=== PATIENT | male | born 1975 | race Caucasian/White ===

== ENCOUNTER 2019-05-14 09:53 | Emergency (ER) | payer BC, OTHER ==
[2019-05-14 09:59] VITALS: TEMP 98.2
[2019-05-14] MEDS ORDERED: KETOROLAC 60 MG/2 ML VIAL IM STA (10:06)
[2019-05-14] MEDS ORDERED: ORPHENADRINE 30 MG/ML 2 ML VIAL IM STA (10:06)
--- NOTE | 2019-05-14 10:08 | ED ---
Back Pain HPI - General Chief Complaint: Back Pain/Injury Stated Complaint: Fall-back pain Time Seen by Provider: 05/14/19 10:01 Source: patient, RN notes reviewed, old records reviewed Limitations: no limitations - History of Present Illness Initial Comments: Patient's 44-year-old male presents emergency department today when she went lumbar back pain and tailbone pain after he slipped in the shower 2 days ago. Patient ports he fell onto his lower back and buttocks. He reports since that time has been having shooting pains on the left leg. Denies saddle anesthesias. He denies any hematuria. Denies any changes in bowel habits. Patient states that he has had no fevers or chills or other significant symptoms. He reports that he has been taking his prescription for gabapentin as well as occasional Motrin.Patient denies any recent fever, chills, shortness of breath, chest pain, abdominal pain, nausea vomiting, numbness or tingling, dysuria or hematuria, constipation or diarrhea, headaches or visual changes, or any other current symptoms - Related Data Previous Rx's Medication Instructions Recorded Acetaminophen-Codeine 300-30mg 1 tab PO Q6H PRN 3 Days #12 tablet 05/14/19 [Tylenol w/codeine #3] Cyclobenzaprine [Flexeril] 10 mg PO TID #12 tab 05/14/19 Ibuprofen 800 mg PO TID #12 tablet 05/14/19 Allergies Allergy/AdvReac Type Severity Reaction Status Date / Time No Known Allergies Allergy Verified 05/14/19 09:58 Review of Systems ROS Statement: Those systems with pertinent positive or pertinent negative responses have been documented in the HPI. ROS Other: All systems not noted in ROS Statement are negative. Past Medical History Past Medical History: No Reported History History of Any Multi-Drug Resistant Organisms: None Reported Past Surgical History: No Surgical Hx Reported Past Psychological History: No Psychological Hx Reported Smoking Status: Current every day smoker Past Alcohol Use History: None Reported Past Drug Use History: None Reported General Exam - General Exam Comments Initial Comments: Pleasant 44 year old male, no distress. Limitations: no limitations General appearance: alert, in no apparent distress Head exam: Present: atraumatic, normocephalic, normal inspection Eye exam: Present: normal appearance, PERRL, EOMI. Absent: scleral icterus, conjunctival injection, periorbital swelling ENT exam: Present: normal exam, mucous membranes moist Neck exam: Present: normal inspection. Absent: tenderness, meningismus, lymphadenopathy Respiratory exam: Present: normal lung sounds bilaterally. Absent: respiratory distress, wheezes, rales, rhonchi, stridor Cardiovascular Exam: Present: regular rate, normal rhythm, normal heart sounds. Absent: systolic murmur, diastolic murmur, rubs, gallop, clicks GI/Abdominal exam: Present: soft, normal bowel sounds. Absent: distended, tenderness, guarding, rebound, rigid Extremities exam: Present: normal inspection, full ROM, normal capillary refill. Absent: tenderness, pedal edema, joint swelling, calf tenderness Back exam: Present: normal inspection, tenderness (Patient is tenderness over the L4-5 and sacrum. No contusion), muscle spasm (lumbar left paraspinal muscules) Psychiatric exam: Present: normal affect, normal mood Skin exam: Present: warm, dry, intact, normal color. Absent: rash Course Vital Signs 05/14/19 09:57 Temperature 98.2 F Pulse Rate 96 Respiratory 18 Rate Blood Pressure 149/68 O2 Sat by Pulse 98 Oximetry Medical Decision Making - Medical Decision Making 44-year-old male presents emergency Department after slip and fall in the shower. He reports he thought his lumbar spine back 2 days ago. He complains of pain radiates on his left leg. Yesterday At this time. 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 specifically An MRI 2013. Patient was informed these results. Discussed he needs follow-up with orthopedic nurse practitioner. Will discharge Patient with coarse muscle accident temperature medicine and pain medicine. Discussed return primary's. All questions were answered temperature discussed. - Radiology Data Radiology results: report reviewed Progression of patient's L3 superior endplate and fraction since the previous study. Degenerative changes. No acute osseous lesions noted. SI joints show no acute osseous lesion. Disposition Clinical Impression: DDD (degenerative disc disease), Abnormal x-ray of lumbar spine, Sciatica Disposition: HOME SELF-CARE Condition: Good Instructions (If sedation given, give patient instructions): Acute Low Back Pain (ED) Additional Instructions: Please use medication as discussed. Please follow up with family doctor if symptoms have not improved over the next two days. Patient advised to have close follow-up with ortho spine specialty as well. Please return to the emergency room if your symptoms increase or worsen or for any other concerns. Prescriptions: Cyclobenzaprine [Flexeril] 10 mg PO TID #12 tab Ibuprofen 800 mg PO TID #12 tablet Acetaminophen-Codeine 300-30mg [Tylenol w/codeine #3] 1 tab PO Q6H PRN 3 Days #12 tablet PRN Reason: Pain Is patient prescribed a controlled substance at d/c from ED?: Yes Referrals: Muna Ling DO [Primary Care Provider] - 1-2 days Cinda Reed DO [Doctor of Osteopathic Medicine] - 1-2 days Time of Disposition: 11:27
--- NOTE | 2019-05-14 10:44 | XR ---
EXAMINATION TYPE: XR lumbar spine 2 or 3V , 3 VIEWS DATE OF EXAM ORDERED: 05/14/2019 HISTORY: fall, L leg pain. COMPARISON: Previous study dated 06/16/2013. FINDINGS: There is a gentle left-sided scoliosis. There is a superior endplate infraction of L3 which has progressed slightly from previous. No other f ractures are seen. There is diffuse disc space loss. This hypertrophic spondylosis present most marke d at T12-L1 and L1-2. No spondylolysis or spondylolisthesis. The pedicles are intact. There is mild s pondylosis deformans at T12-L1 and L1-2. IMPRESSION: 1. PROGRESSION OF THE PATIENT'S L3 SUPERIOR ENDPLATE INFRACTION SINCE THE PREVIOUS STUDY. 2. DEGENERATIVE CHANGE. 3. NO ACUTE OSSEOUS LESION
--- NOTE | 2019-05-14 10:45 | XR ---
EXAMINATION TYPE: XR sacrum coccyx , 3 VIEWS DATE OF EXAM ORDERED: 05/14/2019 HISTORY: fall, L leg pain. COMPARISON: None. FINDINGS: The sacrum and coccyx have a normal appearance. No fracture is seen. The SI joints appear normal. IMPRESSION: NO ACUTE OSSEOUS LESION.
[2019-05-14 11:53] VITALS: BP 143/93; PULSE 97; RESP 16
== END 2019-05-14 11:52 | disposition home or self-care (01) ==
LOC: EC 09:53
DX: M51.36 Other intervertebral disc degeneration, lumbar region (principal); M54.32 Sciatica, left side; R93.7 Abnormal findings on diagnostic imaging of other parts of musculoskeletal system; F17.200 Nicotine dependence, unspecified, uncomplicated
CPT/HCPCS: 72100; 72220; 99284; 96372 ×2; J2360; J1885

== ENCOUNTER → 2019-05-24 | Outpatient (CLI) | payer OTHER ==
--- NOTE | 2019-05-24 15:24 | NM ---
EXAMINATION TYPE: NM bone/joint limited DATE OF EXAM: 05/24/2019 COMPARISON: Outside lumbar spine x-ray May 18, 2019 HISTORY: Lumbar region radiculopathy and spondylosis for order. Acute on chronic back pain recent fal l injury 2 weeks ago. TECHNIQUE: After the intravenous administration of 23.9 mCi Tc 99m MDP. Images acquired 3 hours pos t injection. Multiple views of abdomen and pelvis are submitted focusing on lumbar spine. There is no abnormal uptake within the visualized osseous structures to suggest acute fracture from r ecent fall. Mild uptake lower lumbar levels corresponds to area of increased degenerative change. No significant spondylolisthesis is seen on outside x-ray. IMPRESSION: As above.
== END | disposition home or self-care (01) ==
LOC: RADNMMAIN 11:26
PROVIDERS: ATTEND Physical Medicine & Rehabilitation
DX: M54.16 Radiculopathy, lumbar region (principal)
CPT/HCPCS: 78300; A9503

== ENCOUNTER 2020-11-01 16:05 | Emergency (ER) | payer BC, OTHER ==
[2020-11-01 16:08] VITALS: TEMP 97.5
[2020-11-01] MEDS ORDERED: ONDANSETRON 4 MG/2 ML VIAL IVP STA (16:15)
[2020-11-01] MEDS ORDERED: KETOROLAC 15 MG/ML 1 ML VIAL IVP STA (16:15)
[2020-11-01] MEDS ORDERED: SODIUM CHLORIDE 0.9% 1,000 ML IV STA (16:15)
[2020-11-01] MEDS ORDERED: HYDROmorphone 0.5 MG/0.5 ML SYRINGE IVP STA (16:15)
[2020-11-01] MEDS ORDERED: SODIUM CHLORIDE 0.9% 500 ML 500 ML IV STA (16:15)
[2020-11-01 16:52] LABS: Basophils # (A) 0.1 k/uL (0-0.2); Basophils % (A) 1 %; Eosinophils # (A) 0.3 k/uL (0-0.7); Eosinophils % (A) 3 %; HCT 46.3 % (39.0-53.0); HGB 15.6 gm/dL (13.0-17.5); Lymphocytes # (A) 2.4 k/uL (1.0-4.8); Lymphocytes % (A) 23 %; MCH 32.1 pg (25.0-35.0); MCHC 33.7 g/dL (31.0-37.0); MCV 95.3 fL (80.0-100.0); Mean Platelet Volume 6.4; Monocytes # (A) 0.5 k/uL (0-1.0); Monocytes % (A) 4 %; Neutrophils # (A) 7.2 k/uL (1.3-7.7); Neutrophils % (A) 68 %; Platelet Count 352 k/uL (150-450); RBC 4.86 m/uL (4.30-5.90); RDW 12.6 % (11.5-15.5); WBC 10.5 k/uL (3.8-10.6)
[2020-11-01 16:59] LABS: Amorphous Sediment,Urine Moderate /hpf; Appearance,Urine Cloudy (Clear); Bacteria,Urine Rare /hpf; Bilirubin,Urine Negative (Negative); Blood,Urine Negative (Negative); Color,Urine Yellow; Glucose,Urine (UA) Negative (Negative); Ketones,Urine 1+ (Negative); Leukocyte Esterase,Urine Negative (Negative); Mucus,Urine Rare /hpf; Nitrite,Urine Negative (Negative); PH, Urine 7.5 (5.0-8.0); Protein,Urine Negative (Negative); RBC,Urine 2 /hpf (0-5); Specific Gravity,Urine 1.016 (1.001-1.035); Squamous Epithelial Cell,Urine <1 /hpf (0-4); Urobilinogen,Urine <2.0 mg/dL (<2.0); WBC,Urine 4 /hpf (0-5)
[2020-11-01 17:07] LABS: ALT 19 U/L (4-49); AST 20 U/L (17-59); African American GFR (CKD) >90 (>60 ml/min/1.73 sqM); Albumin 4.4 g/dL (3.5-5.0); Alkaline Phosphatase 80 U/L (38-126); Anion Gap 6 mmol/L; Blood Urea Nitrogen 12 mg/dL (9-20); Calcium 9.9 mg/dL (8.4-10.2); Carbon Dioxide 28 mmol/L (22-30); Chloride 106 mmol/L (98-107); Glucose 94 mg/dL (74-99); Lipase 111 U/L (23-300); Non-African American GFR(CKD) >90 (>60 ml/min/1.73 sqM); Potassium 5.1 mmol/L (3.5-5.1); Sodium 140 mmol/L (137-145); Total Bilirubin 0.3 mg/dL (0.2-1.3)
--- NOTE | 2020-11-01 17:31 | CT ---
EXAMINATION TYPE: CT abdomen pelvis w con DATE OF EXAM: 11/01/2020 COMPARISON: HISTORY: Left sided pain with nausea CT DLP: 1040.5 mGycm Automated exposure control for dose reduction was used. CONTRAST: Performed with IV Contrast, patient injected with 100 mL of Isovue 300. Lung bases are clear. There is no pleural effusion. Heart size is normal. There is no pericardial eff usion. Liver spleen stomach pancreas gallbladder appear normal. The bile ducts are not dilated. There is no adrenal mass. Kidneys show satisfactory contrast opacification. There is no hydronephrosi s. Ureters are not dilated. There is no retroperitoneal adenopathy. There is no mesenteric edema. There is no ascites or free air. There is no sign of a bowel obstructio n. Appendix not definitely seen. Delayed images show fairly normal renal excretion. The lumbar vertebra have normal alignment. There is no compression fracture. The bony pelvis is intac t. Hip joints are intact. IMPRESSION: Negative CT scan abdomen and pelvis. No evidence of renal stone or obstruction. Appendix not seen. No sign of appendicitis. I do not see a cause for left-sided pain.
[2020-11-01 17:34] VITALS: RESP 18
[2020-11-01] MEDS ORDERED: ACET/COD 300 MG/30 MG STARTER PACK 6 TAB BTL PO STA (17:48)
[2020-11-01] MEDS ORDERED: LIDOCAINE 5% PATCH TOPICAL STA (17:48)
[2020-11-01] MEDS ORDERED: CYCLOBENZAPRINE 10MG STARTER 3 TAB BTL PO STA (17:48)
--- NOTE | 2020-11-01 17:48 | ED ---
Abdominal Pain HPI - General Chief Complaint: Abdominal Pain Stated Complaint: L Side Pain Time Seen by Provider: 11/01/20 16:12 Source: patient Mode of arrival: ambulatory Limitations: no limitations - History of Present Illness Initial Comments: 45-year-old male patient presents to the emergency department today for evaluation of left flank pain. Patient states the pain started 2 days ago. Describes as a deep aching pain that is intermittent. States pain does worsen with deep breathing and with turning to the right side. Denies any abdominal pa in. Denies any hematuria, dysuria, urinary frequency, urinary urgency. States bowel movements are normal. Denies nausea or vomiting. Denies any radiating pain down his legs. Denies numbness or tingling to the extremities. Denies saddle anesthesia or loss of bowel or bladder control. Denies any fever or chills. He denies any history of similar type pain. Denies previous abdominal surgeries. Has not been taking any medication for pain. - Related Data Previous Rx's Medication Instructions Recorded Cyclobenzaprine [Flexeril] 10 mg PO TID #15 tab 11/01/20 Ibuprofen [Motrin] 600 mg PO Q8HR PRN #30 tab 11/01/20 Lidocaine 5% Patch [Lidoderm] 1 patch TOPICAL DAILY #30 patch 11/01/20 Allergies Allergy/AdvReac Type Severity Reaction Status Date / Time No Known Allergies Allergy Verified 11/01/20 17:22 Review of Systems ROS Statement: Those systems with pertinent positive or pertinent negative responses have been documented in the HPI. ROS Other: All systems not noted in ROS Statement are negative. Past Medical History Past Medical History: No Reported History History of Any Multi-Drug Resistant Organisms: None Reported Past Surgical History: No Surgical Hx Reported Past Psychological History: No Psychological Hx Reported Smoking Status: Current every day smoker Past Alcohol Use History: Rare Past Drug Use History: None Reported General Exam Limitations: no limitations General appearance: alert, in no apparent distress, other (This is a well- developed, well-nourished adult male patient in no acute distress. Vital signs upon presentation are temperature 97.5F, pulse 77, respirations 20, blood pressure 144/99, pulse ox 100% on room air.) Eye exam: Present: normal appearance, PERRL, EOMI. Absent: scleral icterus, conjunctival injection, periorbital swelling ENT exam: Present: normal exam, normal oropharynx, mucous membranes moist Respiratory exam: Present: normal lung sounds bilaterally. Absent: respiratory distress, wheezes, rales, rhonchi, stridor Cardiovascular Exam: Present: regular rate, normal rhythm, normal heart sounds. Absent: systolic murmur, diastolic murmur, rubs, gallop, clicks GI/Abdominal exam: Present: soft, normal bowel sounds. Absent: distended, tenderness, guarding, rebound, rigid Back exam: Present: normal inspection, CVA tenderness (L). Absent: CVA tenderness (R) Neurological exam: Present: alert, oriented X3, CN II-XII intact Psychiatric exam: Present: normal affect, normal mood Skin exam: Present: warm, dry, intact, normal color. Absent: rash Course Vital Signs 11/01/20 11/01/20 11/01/20 16:06 17:32 18:39 Temperature 97.5 F L 97.5 F L Pulse Rate 77 64 75 Respiratory 20 18 18 Rate Blood Pressure 144/99 125/93 131/85 O2 Sat by Pulse 100 100 100 Oximetry Medical Decision Making - Medical Decision Making 45-year-old male patient presented to the emergency department today for evaluation of left flank pain. Physical examination did reveal some mild left CVA tenderness. Abdomen is soft and nontender. He is afebrile normal vital signs. Labs reviewed and are unremarkable. Urinalysis is normal. CT abdomen and pelvis is negative. Upon reevaluation is resting comfortably in bed states symptoms are improved. We will treat for musculoskeletal back pain with anti- inflammatory and muscle relaxer. He is instructed to follow-up with his primary care physician for recheck in 1-2 days. Return parameters were discussed in detail. He verbalizes understanding and agrees with this plan. Case discussed with my attending Dr. Chamorro. - Lab Data Result diagrams: 11/01/20 16:55 11/01/20 16:55 Lab Results 11/01/20 11/01/20 11/01/20 Range/Units 16:55 16:55 16:55 WBC 10.5 (3.8-10.6) k/uL RBC 4.86 (4.30-5.90) m/uL Hgb 15.6 (13.0-17.5) gm/dL Hct 46.3 (39.0-53.0) % MCV 95.3 (80.0-100.0) fL MCH 32.1 (25.0-35.0) pg MCHC 33.7 (31.0-37.0) g/dL RDW 12.6 (11.5-15.5) % Plt Count 352 (150-450) k/uL MPV 6.4 Neutrophils % 68 % Lymphocytes % 23 % Monocytes % 4 % Eosinophils % 3 % Basophils % 1 % Neutrophils # 7.2 (1.3-7.7) k/uL Lymphocytes # 2.4 (1.0-4.8) k/uL Monocytes # 0.5 (0-1.0) k/uL Eosinophils # 0.3 (0-0.7) k/uL Basophils # 0.1 (0-0.2) k/uL Sodium 140 (137-145) mmol/L Potassium 5.1 (3.5-5.1) mmol/L Chloride 106 (98-107) mmol/L Carbon Dioxide 28 (22-30) mmol/L Anion Gap 6 mmol/L BUN 12 (9-20) mg/dL Creatinine 0.91 (0.66-1.25) mg/dL Est GFR (CKD-EPI)AfAm >90 (>60 ml/min/1.73 sqM) Est GFR (CKD-EPI)NonAf >90 (>60 ml/min/1.73 sqM) Glucose 94 (74-99) mg/dL Plasma Lactic Acid Daquan (0.7-2.0) mmol/L Calcium 9.9 (8.4-10.2) mg/dL Total Bilirubin 0.3 (0.2-1.3) mg/dL AST 20 (17-59) U/L ALT 19 (4-49) U/L Alkaline Phosphatase 80 (38-126) U/L Total Protein 7.0 (6.3-8.2) g/dL Albumin 4.4 (3.5-5.0) g/dL Lipase 111 (23-300) U/L Urine Color Yellow Urine Appearance Cloudy (Clear) Urine pH 7.5 (5.0-8.0) Ur Specific [place] 1.016 (1.001-1.035) Urine Protein Negative (Negative) Urine Glucose (UA) Negative (Negative) Urine Ketones 1+ H (Negative) Urine Blood Negative (Negative) Urine Nitrite Negative (Negative) Urine Bilirubin Negative (Negative) Urine Urobilinogen <2.0 (<2.0) mg/dL Ur Leukocyte Esterase Negative (Negative) Urine RBC 2 (0-5) /hpf Urine WBC 4 (0-5) /hpf Ur Squamous Epith Cells <1 (0-4) /hpf Amorphous Sediment Moderate H (None) /hpf Urine Bacteria Rare H (None) /hpf Urine Mucus Rare H (None) /hpf 11/01/20 Range/Units 16:55 WBC (3.8-10.6) k/uL RBC (4.30-5.90) m/uL Hgb (13.0-17.5) gm/dL Hct (39.0-53.0) % MCV (80.0-100.0) fL MCH (25.0-35.0) pg MCHC (31.0-37.0) g/dL RDW (11.5-15.5) % Plt Count (150-450) k/uL MPV Neutrophils % % Lymphocytes % % Monocytes % % Eosinophils % % Basophils % % Neutrophils # (1.3-7.7) k/uL Lymphocytes # (1.0-4.8) k/uL Monocytes # (0-1.0) k/uL Eosinophils # (0-0.7) k/uL Basophils # (0-0.2) k/uL Sodium (137-145) mmol/L Potassium (3.5-5.1) mmol/L Chloride (98-107) mmol/L Carbon Dioxide (22-30) mmol/L Anion Gap mmol/L BUN (9-20) mg/dL Creatinine (0.66-1.25) mg/dL Est GFR (CKD-EPI)AfAm (>60 ml/min/1.73 sqM) Est GFR (CKD-EPI)NonAf (>60 ml/min/1.73 sqM) Glucose (74-99) mg/dL Plasma Lactic Acid Daquan 1.2 (0.7-2.0) mmol/L Calcium (8.4-10.2) mg/dL Total Bilirubin (0.2-1.3) mg/dL AST (17-59) U/L ALT (4-49) U/L Alkaline Phosphatase (38-126) U/L Total Protein (6.3-8.2) g/dL Albumin (3.5-5.0) g/dL Lipase (23-300) U/L Urine Color Urine Appearance (Clear) Urine pH (5.0-8.0) Ur Specific [place] (1.001-1.035) Urine Protein (Negative) Urine Glucose (UA) (Negative) Urine Ketones (Negative) Urine Blood (Negative) Urine Nitrite (Negative) Urine Bilirubin (Negative) Urine Urobilinogen (<2.0) mg/dL Ur Leukocyte Esterase (Negative) Urine RBC (0-5) /hpf Urine WBC (0-5) /hpf Ur Squamous Epith Cells (0-4) /hpf Amorphous Sediment (None) /hpf Urine Bacteria (None) /hpf Urine Mucus (None) /hpf - Radiology Data Radiology results: report reviewed, image reviewed CT abdomen and pelvis with contrast was obtained. Report reviewed in its entirety. Impression by Dr. Marques shows negative computed tomography scan abdomen and pelvis. No evidence of renal stone or obstruction. Appendix not seen. No sign of appendicitis. I do not see a cause for left sided pain. Disposition Clinical Impression: Left flank pain Disposition: HOME SELF-CARE Condition: Good Instructions (If sedation given, give patient instructions): Flank Pain (ED), Back Pain (ED) Additional Instructions: Take medications as directed. Follow up with her primary care physician for rec heck in 1-2 days. Return to the emergency department for any new, worsening, or concerning symptoms. Prescriptions: Cyclobenzaprine [Flexeril] 10 mg PO TID #15 tab Lidocaine 5% Patch [Lidoderm] 1 patch TOPICAL DAILY #30 patch Ibuprofen [Motrin] 600 mg PO Q8HR PRN #30 tab PRN Reason: Pain Is patient prescribed a controlled substance at d/c from ED?: No Referrals: David Coreas MD [Primary Care Provider] - 1-2 days Time of Disposition: 17:48
[2020-11-01 18:40] VITALS: BP 131/85; PULSE 75
== END 2020-11-01 18:41 | disposition home or self-care (01) ==
LOC: EC 16:05
DX: R10.9 Unspecified abdominal pain (principal); F17.200 Nicotine dependence, unspecified, uncomplicated
CPT/HCPCS: 36415; 80053; 83605; 83690; 85025; 81001; 74177; 99284; 96374; 96375; 96361; J2405; J1885; J1170; Q9967

== ENCOUNTER 2021-05-08 16:16 | Emergency (ER) | payer BC ==
[2021-05-08] MEDS ORDERED: ORPHENADRINE 30 MG/ML 2 ML VIAL IM STA (17:02)
[2021-05-08] MEDS ORDERED: KETOROLAC 15 MG/ML 1 ML VIAL IM STA (17:02)
--- NOTE | 2021-05-08 17:23 | ED ---
General Adult HPI - General Chief complaint: Neck Pain/Injury Stated complaint: Neck Pain Time Seen by Provider: 05/08/21 16:35 Source: patient, RN notes reviewed, old records reviewed Mode of arrival: ambulatory Limitations: no limitations - History of Present Illness Initial comments: This is a 46-year-old male who presents emergency Department complaining of neck pain starting 3 or 4 days ago. Patient states it's on the right side of his neck and goes down into his trapezius muscle. Patient states turning makes it worse are touching makes it worse. Patient doesn't remember doing anything specifically that hurt it. Patient denies any numbness weakness. Patient denies any headache. Patient denies any blunt trauma to the area. - Related Data Previous Rx's Medication Instructions Recorded Cyclobenzaprine [Flexeril] 10 mg PO TID #15 tab 11/01/20 Ibuprofen [Motrin] 600 mg PO Q8HR PRN #30 tab 11/01/20 Lidocaine 5% Patch [Lidoderm] 1 patch TOPICAL DAILY #30 patch 11/01/20 Cyclobenzaprine [Flexeril] 10 mg PO TID #20 tab 05/08/21 Ketorolac [Toradol] 10 mg PO Q6HR #15 tab 05/08/21 Allergies Allergy/AdvReac Type Severity Reaction Status Date / Time No Known Allergies Allergy Verified 05/08/21 16:29 Review of Systems ROS Statement: Those systems with pertinent positive or pertinent negative responses have been documented in the HPI. ROS Other: All systems not noted in ROS Statement are negative. Past Medical History Past Medical History: No Reported History History of Any Multi-Drug Resistant Organisms: None Reported Past Surgical History: No Surgical Hx Reported Additional Past Surgical History / Comment(s): oral Past Psychological History: No Psychological Hx Reported Smoking Status: Current every day smoker Past Alcohol Use History: Rare Past Drug Use History: None Reported General Exam - General Exam Comments Initial Comments: GENERAL: Patient is well-developed and well-nourished. Patient is nontoxic and well- hydrated and is in mild distress. ENT: Neck is soft and supple. No significant lymphadenopathy is noted. Oropharynx is clear. Moist mucous membranes. Neck has full range of motion without eliciting any pain. There is tenderness about the right trapezius muscle EYES: The sclera were anicteric and conjunctiva were pink and moist. Extraocular movements were intact and pupils were equal round and reactive to light. Eyelids were unremarkable. PULMONARY: Unlabored respirations. Good breath sounds bilaterally. No audible rales rhonchi or wheezing was noted. MUSCULOSKELETAL: Normal extremities with adequate strength and full range of motion. LYMPHATICS: No significant lymphadenopathy is noted PSYCHIATRIC: Normal psychiatric evaluation. Limitations: no limitations Course Vital Signs 05/08/21 16:31 Temperature 98.4 F Pulse Rate 82 Respiratory 18 Rate Blood Pressure 133/87 O2 Sat by Pulse 99 Oximetry Disposition Clinical Impression: Strain of neck muscle Disposition: HOME SELF-CARE Instructions (If sedation given, give patient instructions): Cervical Sprain (ED) Prescriptions: Cyclobenzaprine [Flexeril] 10 mg PO TID #20 tab Ketorolac [Toradol] 10 mg PO Q6HR #15 tab Is patient prescribed a controlled substance at d/c from ED?: No Referrals: David Coreas MD [Primary Care Provider] - 1-2 days Time of Disposition: 17:23
[2021-05-08 17:59] VITALS: BP 129/84; PULSE 78; RESP 16; TEMP 98.1
== END 2021-05-08 17:58 | disposition home or self-care (01) ==
LOC: EC 16:16
DX: S16.1XXA Strain of muscle, fascia and tendon at neck level, initial encounter (principal); F17.200 Nicotine dependence, unspecified, uncomplicated; X58.XXXA Exposure to other specified factors, initial encounter
CPT/HCPCS: 99283; 96372 ×2; J2360; J1885

== ENCOUNTER 2021-08-07 08:48 | Emergency (ER) | payer BC ==
[2021-08-07 09:04] VITALS: RESP 16
[2021-08-07] MEDS ORDERED: SODIUM CHLORIDE 0.9% 1,000 ML IV ONE (09:05)
[2021-08-07] MEDS ORDERED: ACETAMINOPHEN TAB 500 MG TAB PO STA (09:05)
--- NOTE | 2021-08-07 09:20 | ED ---
General Adult HPI - General Chief complaint: Upper Respiratory Infection Stated complaint: fever, cough, congestion Time Seen by Provider: 08/07/21 08:54 Source: patient, RN notes reviewed, old records reviewed Mode of arrival: ambulatory Limitations: no limitations - History of Present Illness Initial comments: 46-year-old male with approximately 6 days of cough congestion, fatigue. He's had subjective fever and chills. He is not vaccinated against coronavirus. Uncertain if he came in contact with coronavirus. He's had poor appetite. No nausea or vomiting. No significant dyspnea. - Related Data Previous Rx's Medication Instructions Recorded Cyclobenzaprine [Flexeril] 10 mg PO TID #15 tab 11/01/20 Ibuprofen [Motrin] 600 mg PO Q8HR PRN #30 tab 11/01/20 Lidocaine 5% Patch [Lidoderm] 1 patch TOPICAL DAILY #30 patch 11/01/20 Cyclobenzaprine [Flexeril] 10 mg PO TID #20 tab 05/08/21 Ketorolac [Toradol] 10 mg PO Q6HR #15 tab 05/08/21 Allergies Allergy/AdvReac Type Severity Reaction Status Date / Time No Known Allergies Allergy Verified 08/07/21 08:56 Review of Systems ROS Statement: Those systems with pertinent positive or pertinent negative responses have been documented in the HPI. ROS Other: All systems not noted in ROS Statement are negative. Past Medical History Past Medical History: No Reported History History of Any Multi-Drug Resistant Organisms: None Reported Past Surgical History: No Surgical Hx Reported Additional Past Surgical History / Comment(s): oral Past Psychological History: No Psychological Hx Reported Smoking Status: Current every day smoker Past Alcohol Use History: Rare Past Drug Use History: None Reported General Exam Limitations: no limitations General appearance: alert, in no apparent distress Head exam: Present: atraumatic, normocephalic Eye exam: Present: normal appearance, PERRL ENT exam: Present: mucous membranes dry Respiratory exam: Present: normal lung sounds bilaterally. Absent: respiratory distress, wheezes Cardiovascular Exam: Present: normal rhythm, tachycardia GI/Abdominal exam: Present: soft. Absent: distended, tenderness, guarding Extremities exam: Present: normal inspection, normal capillary refill Neurological exam: Present: alert, oriented X3, CN II-XII intact. Absent: motor sensory deficit Psychiatric exam: Present: normal affect, normal mood Skin exam: Present: warm, dry, intact. Absent: cyanosis, diaphoretic Course Vital Signs 08/07/21 08/07/21 08:53 09:00 Temperature 98.2 F Pulse Rate 127 H Respiratory 18 16 Rate Blood Pressure 141/112 O2 Sat by Pulse 98 Oximetry EKG Findings - EKG Comments: EKG Findings:: EKG: Sinus tachycardia, ventricular rate of 1:15, VT interval 160, QRS duration 88, QTC 456, no ST segment elevation. Medical Decision Making - Medical Decision Making 46-year-old male presenting with concern for coronavirus, not vaccinated, patient does test positive. He is in approximately day 6. He has no hypoxia, no respiratory distress. I did obtain laboratory testing which was unremarkable. Patient does agree to medical antibodies while in the emergency department. He will be transfused. He is given strict return parameters. - Lab Data Result diagrams: 08/07/21 09:12 08/07/21 09:12 Lab Results 08/07/21 08/07/21 08/07/21 Range/Units 08:58 09:12 09:12 WBC 10.3 (3.8-10.6) k/uL RBC 4.90 (4.30-5.90) m/uL Hgb 16.0 (13.0-17.5) gm/dL Hct 46.7 (39.0-53.0) % MCV 95.4 (80.0-100.0) fL MCH 32.6 (25.0-35.0) pg MCHC 34.2 (31.0-37.0) g/dL RDW 12.7 (11.5-15.5) % Plt Count 382 (150-450) k/uL MPV 6.8 Neutrophils % 61 % Lymphocytes % 29 % Monocytes % 5 % Eosinophils % 1 % Basophils % 1 % Neutrophils # 6.3 (1.3-7.7) k/uL Lymphocytes # 3.0 (1.0-4.8) k/uL Monocytes # 0.6 (0-1.0) k/uL Eosinophils # 0.1 (0-0.7) k/uL Basophils # 0.1 (0-0.2) k/uL Sodium 138 (137-145) mmol/L Potassium 3.7 (3.5-5.1) mmol/L Chloride 105 (98-107) mmol/L Carbon Dioxide 24 (22-30) mmol/L Anion Gap 9 mmol/L BUN 21 H (9-20) mg/dL Creatinine 1.06 (0.66-1.25) mg/dL Est GFR (CKD-EPI)AfAm >90 (>60 ml/min/1.73 sqM) Est GFR (CKD-EPI)NonAf 85 (>60 ml/min/1.73 sqM) Glucose 119 H (74-99) mg/dL Calcium 10.0 (8.4-10.2) mg/dL Total Bilirubin 0.6 (0.2-1.3) mg/dL AST 18 (17-59) U/L ALT 19 (4-49) U/L Alkaline Phosphatase 88 (38-126) U/L Total Protein 7.4 (6.3-8.2) g/dL Albumin 4.4 (3.5-5.0) g/dL Coronavirus (PCR) Detected A (Not Detectd) Disposition Clinical Impression: COVID-19 Disposition: HOME SELF-CARE Condition: Fair Instructions (If sedation given, give patient instructions): Coronavirus Disease 2019 (COVID-19) Additional Instructions: Please take vitamin D, zinc, vitamin C at home. Please monitor your breathing cleared. Please return with worsening or changing symptoms. Is patient prescribed a controlled substance at d/c from ED?: No Referrals: David Coreas MD [Primary Care Provider] - 1-2 days Time of Disposition: 12:00
[2021-08-07 09:32] LABS: Basophils # (A) 0.1 k/uL (0-0.2); Basophils % (A) 1 %; Eosinophils # (A) 0.1 k/uL (0-0.7); Eosinophils % (A) 1 %; HCT 46.7 % (39.0-53.0); Lymphocytes % (A) 29 %; MCH 32.6 pg (25.0-35.0); MCHC 34.2 g/dL (31.0-37.0); MCV 95.4 fL (80.0-100.0); Mean Platelet Volume 6.8; Monocytes # (A) 0.6 k/uL (0-1.0); Monocytes % (A) 5 %; Neutrophils # (A) 6.3 k/uL (1.3-7.7); Neutrophils % (A) 61 %; Platelet Count 382 k/uL (150-450); RDW 12.7 % (11.5-15.5); WBC 10.3 k/uL (3.8-10.6)
[2021-08-07 09:43] LABS: ALT 19 U/L (4-49); AST 18 U/L (17-59); African American GFR (CKD) >90 (>60 ml/min/1.73 sqM); Albumin 4.4 g/dL (3.5-5.0); Alkaline Phosphatase 88 U/L (38-126); Anion Gap 9 mmol/L; Blood Urea Nitrogen 21 mg/dL (9-20); Carbon Dioxide 24 mmol/L (22-30); Chloride 105 mmol/L (98-107); Glucose 119 mg/dL (74-99); Non-African American GFR(CKD) 85 (>60 ml/min/1.73 sqM); Potassium 3.7 mmol/L (3.5-5.1); Sodium 138 mmol/L (137-145); Total Bilirubin 0.6 mg/dL (0.2-1.3); Total Protein 7.4 g/dL (6.3-8.2)
[2021-08-07] MEDS ORDERED: BAMLANIVIMAB (EUA) 700 MG, ETESEVIMAB (EUA) 1,400 MG in SODIUM CHLORIDE 0.9% 50 ML IVPB ONE (10:15)
[2021-08-07] MEDS ORDERED: SODIUM CHLORIDE 0.9% 50 ML IVPB ONE (10:15)
[2021-08-07 12:11] VITALS: BP 151/97; PULSE 100; TEMP 98.6
== END 2021-08-07 12:15 | disposition home or self-care (01) ==
LOC: EC 08:48
DX: U07.1 COVID-19 (principal); F17.200 Nicotine dependence, unspecified, uncomplicated
CPT/HCPCS: 36415; 93005; 80053; 85025; 87635; 99283; 96360; 96361; J3490

== ENCOUNTER 2022-12-01 09:11 | Emergency (ER) | payer SELFPAY ==
[2022-12-01 09:17] VITALS: BP 150/95; PULSE 73; RESP 20; TEMP 97.9
[2022-12-01] MEDS ORDERED: dexAMETHasone 4 MG TAB PO STA (09:38)
[2022-12-01] MEDS ORDERED: AMOXIC-POT CLAV 875-125MG 1 EACH TAB PO STA (09:38)
[2022-12-01] MEDS ORDERED: HYDROcodone/APAP 5-325MG 1 EACH TAB PO STA (09:38)
--- NOTE | 2022-12-01 09:38 | ED ---
General Adult HPI - General Chief complaint: Dental/Oral Stated complaint: Tooth Pain Time Seen by Provider: 12/01/22 09:22 Source: patient, RN notes reviewed, old records reviewed Mode of arrival: ambulatory Limitations: no limitations - History of Present Illness Initial comments: Patient is a 47 year old male with unremarkable past medical history who presents to the emergency Department complaining of dental pain, dental infection. Has been going on for a few days. States it is on the left upper frontal tooth with some radiation towards his left cheek. Denies any fevers. Denies any difficulty swallowing or breathing. Has no other acute complaints at this time. Denies any blurry vision. Has attempted to follow up with his dentist but due to the recent holiday has been difficult to see them. Presents for further evaluation of this time. Has been using Motrin for the pain at home with some relief. - Related Data Previous Rx's Medication Instructions Recorded Cyclobenzaprine [Flexeril] 10 mg PO TID #15 tab 11/01/20 Ibuprofen [Motrin] 600 mg PO Q8HR PRN #30 tab 11/01/20 Lidocaine 5% Patch [Lidoderm] 1 patch TOPICAL DAILY #30 patch 11/01/20 Cyclobenzaprine [Flexeril] 10 mg PO TID #20 tab 05/08/21 Ketorolac [Toradol] 10 mg PO Q6HR #15 tab 05/08/21 Cephalexin [Keflex] 500 mg PO Q6HR #28 cap 10/19/22 valACYclovir HCL [Valtrex] 1,000 mg PO TID #30 tablet 10/19/22 Amoxic-Pot Clav 875-125Mg 1 tab PO Q12HR 10 Days #20 tab 12/01/22 [Augmentin 875-125] Allergies Allergy/AdvReac Type Severity Reaction Status Date / Time No Known Allergies Allergy Verified 12/01/22 09:17 Review of Systems ROS Statement: Those systems with pertinent positive or pertinent negative responses have been documented in the HPI. Review of Systems: CONST: Denies fever EYES: Denies blurry vision ENT: Endorses dental pain C/V: Denies Chest pain RESP: Denies shortness of breath GI: Denies abdominal pain : Denies dysuria SKIN: Denies rash. MSK: Denies joint pain. NEURO: Denies headache ROS Other: All systems not noted in ROS Statement are negative. Past Medical History Past Medical History: No Reported History History of Any Multi-Drug Resistant Organisms: None Reported Past Surgical History: No Surgical Hx Reported Additional Past Surgical History / Comment(s): oral Past Psychological History: No Psychological Hx Reported Smoking Status: Current every day smoker Past Alcohol Use History: Rare Past Drug Use History: None Reported General Exam - General Exam Comments Initial Comments: General: Appears in no acute distress. HEAD: Normal with no signs of head trauma. EYES: EOMI. conjunctiva normal. Pupils 2 mm and equal bilaterally. ENT: Hearing grossly intact. Swelling in the left upper gumline. No obvious abscess but there is induration. Very mild tenderness to palpation of the left maxillary sinus. Uvula midline. Tongue midline. No flow the mouth swelling. No stridor. RESPIRATORY: No respiratory distress. No wheezes or rhonchi. C/V: Regular rate and rhythm. ABD: Abdomen is nondistended. EXT: No obvious deformity. SKIN: No rashes or lesions observed on exposed skin. NEURO: Alert and oriented. Limitations: no limitations Course Vital Signs 12/01/22 09:16 Temperature 97.9 F Pulse Rate 73 Respiratory 20 Rate Blood Pressure 150/95 O2 Sat by Pulse 99 Oximetry Medical Decision Making - Medical Decision Making Was pt. sent in by a medical professional or institution (, PA, KNIFE CHANGER, urgent care, hospital, or penitentiary...) When possible be specific @ -No Did you speak to anyone other than the patient for history (EMS, parent, family, police, friend...)? What history was obtained from this source @ -No Did you review nursing and triage notes (agree or disagree)? Why? @ -I reviewed and agree with nursing and triage notes Were old charts reviewed (outside hosp., previous admission, EMS record, old EKG, old radiological studies, urgent care reports/EKG's, penitentiary records)? Report findings @ -No old charts were reviewed Differential Diagnosis (chest pain, altered mental status, abdominal pain women, abdominal pain men, vaginal bleeding, weakness, fever, dyspnea, syncope, headache, dizziness, GI bleed, back pain, seizure, CVA, palpatations, mental health, musculoskeletal)? @ -Cavity, Ludwigs angina, toothache,, dental infection, dental abscess. This list is not all inclusive. EKG interpreted by me (3pts min.). @ -None done X-rays interpreted by me (1pt min.). @ -None done CT interpreted by me (1pt min.). @ -None done U/S interpreted by me (1pt. min.). @ -None done What testing was considered but not performed or refused? (CT, X-rays, U/S, labs)? Why? @ -None What meds were considered but not given or refused? Why? @ -None Did you discuss the management of the patient with other professionals (professionals i.e. Dr., PA, KNIFE CHANGER, lab, RT, psych nurse, social work lecturer, pantograph setter, teacher, corporate ethics officer, immigration case worker)? Give summary @ -No Was smoking cessation discussed for >3mins.? @ -No Was critical care preformed (if so, how long)? @ -No Were there social determinants of health that impacted care today? How? (Homelessness, low income, unemployed, alcoholism, drug addiction, transportation, low edu. Level, literacy, decrease access to med. care, retirement, rehab)? @ -No Was there de-escalation of care discussed even if they declined (Discuss DNR or withdrawal of care, Hospice)? DNR status @ -No What co-morbidities impacted this encounter? (DM, HTN, Smoking, COPD, CAD, Cancer, CVA, ARF, Chemo, Hep., AIDS, mental health diagnosis, sleep apnea, morbid obesity)? @ -None Was patient admitted / discharged? Hospital course, mention meds given and route, prescriptions, significant lab abnormalities, going to OR and other pertinent info. @ -Based on the patient's presentation and physical exam, I do believe he has a toothache. Has some induration of the left upper gumline near the anterior aspect of the gums. No obvious abscess palpated. Some tenderness along the tooth as well. I discussed with him I am concerned for a dental infection at this time and we will start the patient on Augmentin as well as provided with a single dose of Decadron and a Melrose tablet for pain. He can continue using ibuprofen for pain and I will provide him with a starter pack for Tylenol threes. He'll be given a prescription for antibiotics. Recommended he follow up with a dentist. He was in agreement with this plan. No evidence for Von angina at this time. Strict return precautions were discussed. Vital signs are within acceptable limits. I will provide the patient with a prescription for Augmentin. I instructed the patient to follow up with their PCP in the next 1-3 days. I provided contact information for follow up with oral surgery. I explained that the patient should return to the emergency department if they experience any worsening symp toms. Strict return precautions were discussed with the patient. The patient expressed understanding of these instructions. I answered all questions that the patient had. The patient was discharged home in good condition with their prescriptions and follow up information. Undiagnosed new problem with uncertain prognosis? @ -No Drug Therapy requiring intensive monitoring for toxicity (Heparin, Nitro, Insulin, Cardizem)? @ -No Were any procedures done? @ -No Diagnosis/symptom? @ -Dental pain/infection Acute, or Chronic, or Acute on Chronic? @ -Acute Uncomplicated (without systemic symptoms) or Complicated (systemic symptoms)? @ -Uncomplicated Side effects of treatment? @ -No Exacerbation, Progression, or Severe Exacerbation? @ -No Poses a threat to life or bodily function? How? (Chest pain, [place], [place], pneumonia, PE, COPD, DKA, ARF, appy, cholecystitis, CVA, Diverticulitis, Homicidal, Suicidal, threat to staff... and all critical care pts) @ -No Disposition Clinical Impression: Pain, dental Disposition: HOME SELF-CARE Condition: Good Instructions (If sedation given, give patient instructions): Toothache (ED) Prescriptions: Amoxic-Pot Clav 875-125Mg [Augmentin 875-125] 1 tab PO Q12HR 10 Days #20 tab Is patient prescribed a controlled substance at d/c from ED?: No Referrals: David Coreas MD [Primary Care Provider] - 1-2 days Jorge Alberto Hinojosa DDS [STAFF PHYSICIAN] - 1-2 days Time of Disposition: 09:37
[2022-12-01] MEDS ORDERED: ACET/COD 300 MG/30 MG STARTER PACK 6 TAB BTL PO STA (09:39)
== END 2022-12-01 09:50 | disposition home or self-care (01) ==
LOC: EC 09:11
DX: K08.89 Other specified disorders of teeth and supporting structures (principal); F17.200 Nicotine dependence, unspecified, uncomplicated
CPT/HCPCS: 99283; J8540